=== PATIENT | female | born 1995 | race Caucasian/White ===

== ENCOUNTER 2021-08-16 11:25 | Inpatient (IN) | payer OTHER ==
[2021-08-16] MEDS ORDERED: BUTORPHANOL TARTRATE 1 MG/ML VIAL IVPB PRN (12:22)
[2021-08-16] MEDS ORDERED: PROMETHAZINE HCL 25 MG/1 ML VIAL IVPUSH ONE (12:22)
[2021-08-16 12:33] LABS: BASO % 0.3 % (0-2.0); EOS % 0.3 % (0-4.5); HEMATOCRIT 35.9 % (32.4-45.2); HEMOGLOBIN 12.2 GM/dL (10.7-15.3); LYMPH % 20.9 % (8-40); MCH 31.2 pg (25.7-33.7); MCHC 33.9 g/dl (32.0-36.0); MEAN CELL VOLUME 91.8 fl (80-96); MEAN PLT VOLUME 12.3 fl (7.5-11.1); MONO % 7.6 % (3.8-10.2); NEUT % 70.9 % (42.8-82.8); PLATELET COUNT 171 10^3/uL (134-434); RBC 3.91 M/mm3 (3.60-5.2); RDW 14.2 % (11.6-15.6); WHITE BLOOD COUNT 10.6 K/mm3 (4.0-10.0)
[2021-08-16 12:40] LABS: INR 0.93 (0.83-1.09); PROTHROMBIN TIME (PATIENT) 10.4 SEC (9.7-13.0)
[2021-08-16 12:44] LABS: ACTIVATED PTT 27.5 SECONDS (25.2-36.5)
[2021-08-16 12:58] LABS: CALCIUM 9.2 mg/dL (8.5-10.1)
[2021-08-16 12:59] LABS: BLOOD UREA NITROGEN 8.7 mg/dL (7-18)
[2021-08-16] MEDS ORDERED: DINOPROSTONE 10 MG VAGINAL SUPPOSITORY VG ONE (13:00)
[2021-08-16 13:02] LABS: CREATININE 0.7 mg/dL (0.55-1.3)
[2021-08-16] MEDS: ELECTROLYTE-148 SOLN 1,000 ML IV SCH ×2 (13:15→21:30)
[2021-08-16 13:24] VITALS: BMI 26.5
[2021-08-16 16:31] LABS: URIC ACID 7.2 mg/dL (2.6-7.2)
[2021-08-16] MEDS ORDERED: ePHEDrine SULFATE 50 MG/1 ML AMPULE ONE ×2 (21:43)
[2021-08-16] MEDS ORDERED: PROPOFOL 20 ML ONE ×2 (21:43)
[2021-08-16] MEDS ORDERED: SUCCINYLCHOLINE CHLORIDE 200 MG/10 ML SYRINGE ONE (21:45)
[2021-08-16] MEDS ORDERED: BENZOCAINE 20% 57 GM BOTTLE TP PRN (22:27)
[2021-08-16] MEDS ORDERED: METHYLERGONOVINE MALEATE 0.2 MG/1 ML AMP IM PRN (22:27)
[2021-08-16] MEDS ORDERED: WITCH HAZEL 50% (TUCKS) 40 PAD/JAR PAD TP PRN (22:27)
[2021-08-16] MEDS ORDERED: OXYTOCIN 20 UNITS in 0.9% NS 20 UNIT/1,000 ML INFUS.BAG IV SCH (22:30)
[2021-08-16] MEDS ORDERED: CITRIC ACID/SODIUM CITRATE 30 ML UNIT-DOSE CUP PO ONE (23:45)
[2021-08-16 23:54] LABS: PH,URINE 6.5 (5.0-8.0); URINE APPEARANCE CLEAR; URINE BILIRUBIN NEGATIVE (NEGATIVE); URINE COLOR YELLOW; URINE GLUCOSE (UA) NEGATIVE (NEGATIVE); URINE KETONE 2+ (NEGATIVE); URINE LEUK ESTERASE NEGATIVE (NEGATIVE); URINE NITRITE NEGATIVE (NEGATIVE); URINE PROTEIN NEGATIVE (NEGATIVE); URINE UROBILINOGEN 0.2 mg/dL (0.2-1.0)
[2021-08-16 23:56] LABS: CORD HCO3 22.2 mmHg (20-29); CORD HCO3 26.2 mmHg (20-29); CORD PCO2 55.4 mmHg (30-78); CORD PCO2 69.5 mmHg (30-78); CORD pH 7.194 (7.14-7.44); CORD pH 7.221 (7.14-7.44)
[2021-08-17] MEDS ORDERED: OXYTOCIN 20 UNITS in 0.9% NS 20 UNIT/1,000 ML INFUS.BAG IV ONE (01:00)
[2021-08-17] MEDS ORDERED: PROPOFOL 20 ML ONE ×2 (07:13)
[2021-08-17 07:14] LABS: BASO % 0.3 % (0-2.0); EOS % 0.1 % (0-4.5); HEMOGLOBIN 10.8 GM/dL (10.7-15.3); LYMPH % 14.6 % (8-40); MCH 31.2 pg (25.7-33.7); MCHC 33.7 g/dl (32.0-36.0); MEAN CELL VOLUME 92.6 fl (80-96); MEAN PLT VOLUME 12.2 fl (7.5-11.1); MONO % 5.9 % (3.8-10.2); NEUT % 79.1 % (42.8-82.8); PLATELET COUNT 144 10^3/uL (134-434); RBC 3.46 M/mm3 (3.60-5.2); RDW 14.1 % (11.6-15.6); WHITE BLOOD COUNT 13.7 K/mm3 (4.0-10.0)
[2021-08-17] MEDS: IBUPROFEN 800 MG/8 ML IJ IVPB PRN ×2 (07:19→15:31)
[2021-08-17] MEDS: FERROUS SO4 325 MG TABLET (FP) PO SCH ×2 (10:18→21:53)
[2021-08-17] MEDS: PRENATAL VITAMINS W/ FOLIC ACID TABLET (FP) PO SCH (10:19)
[2021-08-17] MEDS ORDERED: oxyCODONE HCL 5 MG TABLET PO PRN ×2 (10:27)
[2021-08-17] MEDS: ACETAMINOPHEN 325 MG TABLET (FP) PO PRN (14:13)
[2021-08-17] MEDS ORDERED: BISACODYL 10 MG SUPP.RECT RC PRN (22:27)
[2021-08-18] MEDS: SIMETHICONE 80 MG TAB.CHEW (FP) PO PRN ×3 (00:20→20:46)
[2021-08-18] MEDS: IBUPROFEN 600 MG TABLET (FP) PO PRN ×2 (00:20→20:45)
[2021-08-18] MEDS: ACETAMINOPHEN 325 MG TABLET (FP) PO PRN ×2 (00:20→20:46)
[2021-08-18] MEDS: PRENATAL VITAMINS W/ FOLIC ACID TABLET (FP) PO SCH (09:49)
[2021-08-18] MEDS: FERROUS SO4 325 MG TABLET (FP) PO SCH ×2 (09:49→21:01)
[2021-08-19 08:11] LABS: BASO % 0.5 % (0-2.0); EOS % 1.1 % (0-4.5); HEMATOCRIT 30.7 % (32.4-45.2); HEMOGLOBIN 10.7 GM/dL (10.7-15.3); LYMPH % 33.3 % (8-40); MCHC 34.9 g/dl (32.0-36.0); MEAN CELL VOLUME 91.5 fl (80-96); MEAN PLT VOLUME 11.1 fl (7.5-11.1); MONO % 6.7 % (3.8-10.2); NEUT % 58.4 % (42.8-82.8); PLATELET COUNT 154 10^3/uL (134-434); RBC 3.35 M/mm3 (3.60-5.2); RDW 13.9 % (11.6-15.6); WHITE BLOOD COUNT 9.4 K/mm3 (4.0-10.0)
[2021-08-19] MEDS: FERROUS SO4 325 MG TABLET (FP) PO SCH ×2 (09:32→23:26)
[2021-08-19] MEDS: PRENATAL VITAMINS W/ FOLIC ACID TABLET (FP) PO SCH (09:32)
[2021-08-20] MEDS: FERROUS SO4 325 MG TABLET (FP) PO SCH (09:58)
[2021-08-20] MEDS: PRENATAL VITAMINS W/ FOLIC ACID TABLET (FP) PO SCH (09:59)
[2021-08-20 10:51] VITALS: BP 138/92; PULSE 73; TEMP 98.1
== END 2021-08-20 13:50 | disposition home or self-care (01) | DRG 788 ==
LOC: JLDR 11:25 → J3W 08-17 01:02
PROVIDERS: ADMIT Obstetrics & Gynecology; ATTEND Obstetrics & Gynecology
PROC: 10D00Z1 Extraction of Products of Conception, Low, Open Approach (ICD-10-PCS; principal; 2021-08-16)
PROC: 3E0P7VZ Introduction of Hormone into Female Reproductive, Via Natural or Artificial Opening (ICD-10-PCS; 2021-08-16)
DX: O36.5930 Maternal care for other known or suspected poor fetal growth, third trimester, not applicable or unspecified (principal); Z3A.37 37 weeks gestation of pregnancy; Z37.0 Single live birth
CPT/HCPCS: 36415; 36600; 80048; 81003; 82803; 84450; 84460; 84550; 85025; 85610; 85730; 86780; 86850; 86900; 86901; 88307-TC; C9803; U0003; U0005